=== PATIENT | male | born 1955 | race Caucasian/White ===

== ENCOUNTER 2016-12-26 05:30 | Day surgery (SDC) | payer OTHER ==
[~2016-12-26] VITALS: Ht 182.9 cm; Wt 136.6 kg
[~2016-12-26 05:30] MED LIST: ADULT LOW DOSE81 M1 PO; ALDACTONE25 MG PO; Aspirin E.C. PO; Bactrim,Septra DS 80 PO; CALCITRIOL0.5 MCG PO; CARDURA4 MG PO; EFFIENT10 MG PO; GABAPENTIN300 MG PO; GLIPIZIDE10 M1 PO; GLIPIZIDE10 MG PO; GLUCOPHAGE XR1000 MG PO; HYDRALAZINE HCL25 MG PO; JANUMET 50/11 TABLET PO; JANUMET 50/51 TABLET PO; LANTUS 3 M100 UNITS1 SC; LASIX40 MG PO; LIPITOR80 MG PO; MAGNESIUM250 MG PO; METOPROLOL TAR100 MG PO; NEURONTIN300 MG PO; NITROSTAT0.4 MG SL; NOVOLOG PE100 UNITS/ SC; OXYCODONE HCL30 MG PO; OxyCODONE PO; PLAVIX75 MG PO; PRINIVIL5 MG PO; PROTONIX40 MG PO; QUINAPRIL HCL40 MG PO; RIMACTANE,RIFA300 MG PO; ROCALTROL0.25 MCG PO; TOPROL XL200 MG PO; TOPROL XL50 MG PO; VENTOLIN HFA18 GM IH
[2016-12-26 05:58] LABS: POINT-OF-CARE METER ID UU13113694
[2016-12-26 06:01] VITALS: BP 185/84
[2016-12-26 07:34] LABS: METH RESISTANT S AUREUS PCR NEGATIVE (NEGATIVE)
[2016-12-26 07:40] LABS: PROBE CHECK PASS; SPECIMEN PROCESSING CONTROL PASS
[2016-12-26 09:14] LABS: POINT-OF-CARE METER ID UU13113675
[2016-12-26 09:52] VITALS: BP 172/77
[2016-12-26 10:10] VITALS: BP 161/79
== END 2016-12-26 10:21 | disposition home or self-care (01) ==
LOC: SDC 05:30
PROVIDERS: Internal Medicine
PROC: 08B43ZZ Excision of Right Vitreous, Percutaneous Approach (ICD-10-PCS; principal; 2016-12-26)
DX: T85.22XA Displacement of intraocular lens, initial encounter (principal); H33.311 Horseshoe tear of retina without detachment, right eye; Y83.1 Surgical operation with implant of artificial internal device as the cause of abnormal reaction of the patient, or of later complication, without mention of misadventure at the time of the procedure
CPT/HCPCS: 82948; 87641; J0690; J1885; J2405; J3010; J3300; V2632